=== PATIENT | female | born 1980 | race Caucasian/White ===

== ENCOUNTER 2016-10-16 00:53 | Emergency (ER) | payer MEDICAID, OTHER ==
[~2016-10-16] VITALS: Ht 162.6 cm; Wt 52.0 kg
[~2016-10-16 00:53] MED LIST: DOXY100T20 PO; IBUP-1542 PO; NAPR-260 PO
[2016-10-16 00:56] VITALS: Ht 162.6 cm; Wt 52.0 kg
--- NOTE | 2016-10-16 02:07 | RADRPT ---
PROCEDURE: US Abdomen (right upper quadrant). CLINICAL INDICATION: Pain. TECHNIQUE: Multiple real-time longitudinal and transverse images of the right upper quadrant of th e abdomen were acquired utilizing a curved array transducer. Images were reviewed on a high-resoluti on PACS workstation. COMPARISON: None FINDINGS: The liver is normal in size and echogencity. There is no focal intrahepatic mass.. The gallbladder is normal. There is no pericholecystic fluid or gallbladder wall thickening or gallstones. No intr a or extrahepatic biliary dilatation is seen. The common bile duct measures 2.6 mm in maximal dimen luis armando. The visualized portions of the pancreas are unremarkable with obscuration of the tail of the pancreas. No free fluid is identified. The right kidney measures 9.9 cm in length. There is normal echogenicity within the right kidney. There is no perinephric fluid collection. No hydronephrosis, mass, or calculus is seen. IMPRESSION: 1. Negative examination. RPTAT: [facility] .Juan Pablo Guillen MD, MD Date Time Electronically viewed and signed by .Juan Pablo Guillen MD, on 10/16/2016 02:07 .K/
[2016-10-16 02:35] LABS: BASOPHILS % 0.3 % (0.0-2.0); EOSINOPHILS % 0.3 % (0.0-7.0); HEMATOCRIT 36.2 % (37.0-47.0); HEMOGLOBIN 12.2 g/dl (12.0-16.0); LYMPHOCYTES # 2.1 10^3/ul (0.8-2.9); LYMPHOCYTES % 34.6 % (15.0-51.0); MEAN CORPUSCULAR HEMOGLOBIN 30.1 pg (29.0-33.0); MEAN CORPUSCULAR HGB CONC 33.7 g/dl (32.0-37.0); MEAN CORPUSCULAR VOLUME 89.4 fl (82.0-101.0); MEAN PLATELET VOLUME 8.7 fl (7.4-10.4); MONOCYTE # 0.3 10^3/ul (0.3-0.9); MONOCYTES % 5.2 % (0.0-11.0); NEUTROPHIL # 3.6 10^3/ul (1.6-7.5); NEUTROPHILS % 59.3 % (39.0-77.0); PLATELET COUNT 244 10^3/UL (140-415); RED BLOOD COUNT 4.05 10^6/ul (4.20-5.40); RED CELL DISTRIBUTION WIDTH 12.6 % (11.5-14.5)
[2016-10-16 02:49] LABS: ALBUMIN 4.2 g/dl (3.3-4.9); ALBUMIN/GLOBULIN RATIO 1.5; BILIRUBIN,INDIRECT 0.6 mg/dl (0-1.1); BILIRUBIN,TOTAL 0.6 mg/dl (0.2-1.3); CREATININE 0.91 mg/dl (0.44-1.00); POTASSIUM 4.2 mmol/L (3.5-5.1)
[2016-10-16] MEDS ORDERED: IBUP200C11 PO (03:01)
[2016-10-16] MEDS ORDERED: ACET-141 PO (03:01)
[2016-10-16] MEDS ORDERED: LIDOCAINE/MYLANTA 40 ML BTL PO ONE (03:30)
[2016-10-16 03:58] LABS: ADD UMIC YES; UR AMORPHOUS CRYSTAL MANY /HPF (NONE SEEN); UR ASCORBIC ACID 40 mg/dL (NEGATIVE); UR BACTERIA FEW /HPF (NONE SEEN); UR BILIRUBIN (Dip) NEGATIVE (NEGATIVE); UR BLOOD (Dip) NEGATIVE (NEGATIVE); UR CLARITY CLOUDY (CLEAR); UR COLOR YELLOW (YELLOW); UR GLUCOSE (Dip) NEGATIVE (NEGATIVE); UR KETONES (Dip) NEGATIVE (NEGATIVE); UR LEUKOCYTE ESTERASE (Dip) NEGATIVE Leu/ul (NEGATIVE); UR MUCUS FEW /HPF (NONE SEEN); UR NITRITE (Dip) POSITIVE (NEGATIVE); UR RBC 2 /HPF (0-5); UR SPECIFIC GRAVITY (Dip) 1.019 (1.003-1.030); UR SQUAMOUS EPITHELIAL CELL FEW /HPF (FEW); UR TOTAL PROTEIN (Dip) NEGATIVE (NEGATIVE); UR UROBILINOGEN (Dip) NEGATIVE (NEGATIVE)
[2016-10-16] MEDS ORDERED: CEFTRIAXONE 1 GM/50 ML (PMX) 50 ML IVPB ONE (04:30)
[2016-10-16] MEDS ORDERED: NAPR-688 PO (04:47)
[2016-10-16] MEDS ORDERED: CIPR500S2 PO (04:47)
[2016-10-16] MEDS ORDERED: ONDA4TAB14 PO (04:47)
[2016-10-16] MEDS ORDERED: HYDR-906 PO (04:48)
--- NOTE | 2016-10-16 04:52 | ERD ---
ER Documentation Chief Complaint Date/Time DATE: 10/16/16 TIME: 04:48 Chief Complaint epigastric pain x 3 weeks HPI 28-year-old female presented with epigastric pain 3 weeks. She also states she has some diarrhea today. Pain is described as a sharp pain that does not radiate. She has had no fevers or chills. She denies the possibility she may because she has had her tubes ablated. ROS All systems reviewed and are negative except as per history of present illness. Medications Home Meds Active Scripts Hydrocodone/Acetaminophen ([place] 5-325 Tablet) 1 Each Tablet, 1 EACH PO Q6, #10 TAB Prov:ASHLEY MARY DO 10/16/16 Ciprofloxacin (Ciprofloxacin) 500 Mg/5 Ml Brandy.mc.rec, 500 MG PO BID, #6 TAB Prov:ASHLEY MARY DO 10/16/16 Ondansetron (Ondansetron Odt) 4 Mg Tab.rapdis, 4 MG PO Q6H Y for NAUSEA AND/OR VOMITING, #14 TAB Prov:ASHLEY MARY DO 10/16/16 Naproxen* (Naproxen*) 500 Mg Tablet, 500 MG PO BID Y for PAIN, #14 TAB Prov:ASHLEY MARY DO 10/16/16 Reported Medications Ibuprofen* (Advil*) 200 Mg Capsule, 200 MG PO Q6H Y for PAIN, CAP 10/16/16 Acetaminophen* (Acetaminophen*) 500 MG Extra Strength Tablet, 500 MG PO Q4H Y for PAIN AND OR ELEVATED TEMP, TAB 10/16/16 Discontinued Scripts Doxycycline Hyclate* (Doxycycline Hyclate*) 100 Mg Tablet.dr, 100 MG PO BID for 10 Days, TAB Prov:KATARZYNA AGUAIR NP 06/17/15 Ibuprofen* (Ibuprofen*) 600 Mg Tablet, 600 MG PO Q6H Y for PA, #30 TAB Prov:SHYAM DONALDSON NP 12/19/14 Naproxen* (Naprosyn*) 500 Mg Tablet, 500 MG PO BID Y for PAIN AND/OR INFLAMMATION, #30 TAB Prov:SHYAM DONALDSON NP 10/03/14 Allergies Allergies: Coded Allergies: No Known Allergy (Unverified , 10/16/16) PMhx/Soc History of Surgery: No Anesthesia Reaction: No Hx Neurological Disorder: No Hx Respiratory Disorders: No Hx Cardiac Disorders: No Hx Psychiatric Problems: No Hx Miscellaneous Medical Probl: No Hx Alcohol Use: Yes (SOCIALLY) Hx Substance Use: Yes (MARIJUANA) Hx Tobacco Use: Yes Smoking Status: Never smoker Physical Exam Vitals Vital Signs Date Time Temp Pulse Resp B/P Pulse Ox O2 Delivery O2 Flow Rate FiO2 10/16/16 03:44 85 12 113/90 100 10/16/16 00:56 98.3 103 20 119/72 100 Physical Exam Const: [] Mild distress, appears uncomfortable Head: Atraumatic Eyes: Normal Conjunctiva ENT: Normal External Ears, Nose and Mouth. Neck: Full range of motion..~ No meningismus. Resp: Clear to auscultation bilaterally Cardio: Regular rate and rhythm, no murmurs Abd: Soft, mild epigastric tenderness without guarding or rebound non distended. Normal bowel sounds Skin: No petechiae or rashes Back: No midline or flank tenderness Ext: No cyanosis, or edema Neur: Awake and alert and oriented 3, no focal deficits. Psych: Normal Mood and Affect Result Diagram: 10/16/16 0148 10/16/16 0148 Results 24 hrs Laboratory Tests Test 10/16/16 01:48 10/16/16 03:27 White Blood Count 6.010^3/ul Red Blood Count 4.0510^6/ul Hemoglobin 12.2g/dl Hematocrit 36.2% Mean Corpuscular Volume 89.4fl Mean Corpuscular Hemoglobin 30.1pg Mean Corpuscular Hemoglobin Concent 33.7g/dl Red Cell Distribution Width 12.6% Platelet Count 00671^3/UL Mean Platelet Volume 8.7fl Neutrophils % 59.3% Lymphocytes % 34.6% Monocytes % 5.2% Eosinophils % 0.3% Basophils % 0.3% Nucleated Red Blood Cells % 0.0/100WBC Neutrophils # 3.610^3/ul Lymphocytes # 2.110^3/ul Monocytes # 0.310^3/ul Eosinophils # 0.010^3/ul Basophils # 0.010^3/ul Nucleated Red Blood Cells # 0.010^3/ul Sodium Level 139mmol/L Potassium Level 4.2mmol/L Chloride Level 103mmol/L Carbon Dioxide Level 28mmol/L Anion Gap 12 Blood Urea Nitrogen 16mg/dl Creatinine 0.91mg/dl Glucose Level 96mg/dl Calcium Level 9.0mg/dl Total Bilirubin 0.6mg/dl Direct Bilirubin 0.00mg/dl Indirect Bilirubin 0.6mg/dl Aspartate Amino Transf (AST/SGOT) 16IU/L Alanine Aminotransferase (ALT/SGPT) 28IU/L Alkaline Phosphatase 53IU/L Total Protein 7.0g/dl Albumin 4.2g/dl Globulin 2.80g/dl Albumin/Globulin Ratio 1.50 Lipase 44U/L Urine Color YELLOW Urine Clarity CLOUDY Urine pH 7.0 Urine Specific [place] 1.019 Urine Ketones NEGATIVEmg/dL Urine Nitrite POSITIVEmg/dL Urine Bilirubin NEGATIVEmg/dL Urine Urobilinogen NEGATIVEmg/dL Urine Leukocyte Esterase NEGATIVELeu/ul Urine Microscopic RBC 2/HPF Urine Microscopic WBC 10/HPF Urine Squamous Epithelial Cells FEW/HPF Urine Amorphous Crystals MANY/HPF Urine Bacteria FEW/HPF Urine Mucus FEW/HPF Urine Hemoglobin NEGATIVEmg/dL Urine Glucose NEGATIVEmg/dL Urine Total Protein NEGATIVEmg/dl Current Medications Medications (Trade) Dose Ordered Sig/[place] Route PRN Reason Start Time Stop Time Status Last Admin Dose Admin Miscellaneous Medication 40 ml 40 ml ONCE ONCE PO 10/16/16 03:30 10/16/16 03:31 DC 10/16/16 03:25 Ceftriaxone Sodium (Rocephin) 50 ml @ 100 mls/hr ONCE ONCE IVPB 10/16/16 04:30 10/16/16 04:59 Procedures/MDM UTI and presumed described gastroenteritis in 28-year-old female. Labs are otherwise normal. No signs of serious bacterial infection. Patient's condition was improved and she was given 4 mg of morphine, IV Zofran, normal saline. Also gave her a gram of Rocephin when her urinalysis returned positive. We will discharge her with 3 days of Cipro as well as a few Edison pills, naproxen and Zofran. Primary care follow-up in 2-3 days and return precautions to ER Right upper quadrant ultrasound interpretation: I see no gallstones or free fluid. Normal appearance of liver Departure Diagnosis: Primary Impression: UTI (urinary tract infection) Additional Impressions: Acute abdominal pain Gastroenteritis Condition: Stable Patient Instructions: Understanding Urinary Tract Infections (UTIs), Gastroenteritis, Viral (6Y-Adult) Additional Instructions: Call your primary care doctor TOMORROW for an appointment during the next 2-3 days.See the doctor sooner or return here if your condition worsens before your appointment time. ASHLEY MARY DO Oct 16, 2016 04:52
[2016-10-16 05:42] VITALS: BP 110/90; PULSE 79; RESP 12
== END 2016-10-16 05:44 | disposition home or self-care (01) ==
LOC: E/R 00:53
DX: N39.0 Urinary tract infection, site not specified (principal); K52.9 Noninfective gastroenteritis and colitis, unspecified
CPT/HCPCS: 36415; 76705; 80053; 81001; 83690; 85025; 96374; J0696; Z7502; Z7610

== ENCOUNTER 2018-02-19 16:02 | Emergency (ER) | END 2018-02-19 19:18 | disposition home or self-care (01) ==

== ENCOUNTER 2018-09-22 14:28 | Emergency (ER) | payer OTHER ==
[~2018-09-22] VITALS: Ht 170.2 cm; Wt 50.6 kg
[~2018-09-22 14:28] MED LIST changes: +ACET-141 PO; +ALBU8.5H8 INH; +AZIT250T PO; +CIPR500S2 PO; -DOXY100T20 PO; +GUAI473L22 PO; +HYDR-4011 PO; -IBUP-1542 PO; +IBUP200C11 PO; -NAPR-260 PO; +NAPR-688 PO; +ONDA4TAB14 PO
[2018-09-22 14:47] VITALS: Ht 170.2 cm; Wt 50.6 kg
[2018-09-22] MEDS ORDERED: IBUPROFEN 800 MG TAB PO ONE (15:30)
[2018-09-22] MEDS ORDERED: IBUP-1542 PO (15:57)
[2018-09-22 16:13] VITALS: BP 127/75; PULSE 77; RESP 18
--- NOTE | 2018-09-22 18:16 | ERD ---
ER Documentation Chief Complaint Chief Complaint LEFT ABD PAIN/FLANK PAIN WITH LIGHT BROWN URINE. PROTRUDING BELLY BUTTON HPI Patient is a with no medical problems who presents with a "bump in my stomach". The patient said that she has had this bump in her stomach for "a while". She reports pain in the left flank which started 2 days ago. She had subjective fevers. Today her urine was brown. She noticed a little bit of blood. She has had no treatment as of yet. Upon review of old medical records this is the patient's 10th visit to the ER since 2009. Her primary doctor is Dr. Pham. ROS All systems reviewed and are negative except as per history of present illness. Medications Home Meds Active Scripts Ibuprofen* (Motrin*) 600 Mg Tab, 600 MG PO Q6H PRN for PAIN AND OR ELEVATED TEMP, #30 TAB Prov:CHRISTINE NASSAR MD 09/22/18 Discontinued Reported Medications Ibuprofen* (Advil*) 200 Mg Capsule, 200 MG PO Q6H PRN for PAIN, CAP 10/16/16 Acetaminophen* (Acetaminophen*) 500 MG Extra Strength Tablet, 500 MG PO Q4H PRN for PAIN AND OR ELEVATED TEMP, TAB 10/16/16 Discontinued Scripts Guaifenesin-Codeine Phosphate* (Guaifenesin* AC Cough Syrup) 473 Ml Liquid, 5 ML PO BID PRN for COUGH, #60 ML Prov:KUSUM GIVENS MD 02/19/18 Albuterol Sulfate* (Proair HFA*) 8.5 Gm Hfa.aer.ad, 2 PUFF INH Q4H PRN for WHEEZ ING AND SOB, #1 INHALER Prov:KUSUM GIVENS MD 02/19/18 Azithromycin* (Zithromax*) 250 Mg Tablet, 250 MG PO .ZPACK DIRECTED, #6 TAB TAKE 500 MG (2 TABS) THE FIRST DAY THEN 250 MG (1 TAB) DAYS 2-5 Prov:KUSUM GIVENS MD 02/19/18 Hydrocodone/Acetaminophen ([place] 5-325 Tablet) 1 Each Tablet, 1 EACH PO Q6, #10 TAB Prov:ASHLEY MARY DO 10/16/16 Ciprofloxacin (Ciprofloxacin) 500 Mg/5 Ml Brandy.mc.rec, 500 MG PO BID, #6 TAB Prov:ASHLEY MARY DO 10/16/16 Ondansetron (Ondansetron Odt) 4 Mg Tab.rapdis, 4 MG PO Q6H PRN for NAUSEA AND/OR VOMITING, #14 TAB Prov:ASHLEY MARY DO 10/16/16 Naproxen* (Naproxen*) 500 Mg Tablet, 500 MG PO BID PRN for PAIN, #14 TAB Prov:ASHLEY MARY DO 10/16/16 Allergies Allergies: Coded Allergies: No Known Allergy (Unverified , 09/22/18) PMhx/Soc History of Surgery: Yes ( x 3) Anesthesia Reaction: No Hx Neurological Disorder: No Hx Respiratory Disorders: No Hx Cardiac Disorders: No Hx Psychiatric Problems: No Hx Miscellaneous Medical Probl: No Hx Alcohol Use: Yes (SOCIALLY) Hx Substance Use: Yes (MARIJUANA) Hx Tobacco Use: Yes Smoking Status: Current every day smoker FmHx Family History: diabetes Physical Exam Vitals Vital Signs Date Temp Pulse Resp B/P (MAP) Pulse Ox O2 O2 Flow FiO2 Time Delivery Rate 09/22/18 99.1 77 18 127/75 100 Room Air 16:13 (92) 09/22/18 99.1 92 16 131/78 100 14:47 (95) Physical Exam Const: Moderate distress Head: Atraumatic Eyes: Normal Conjunctiva ENT: Normal External Ears, Nose and Mouth. Neck: Full range of motion. No meningismus. Resp: Clear to auscultation bilaterally Cardio: Regular rate and rhythm, no murmurs Abd: Soft, non tender, non distended. Normal bowel sounds, left-sided flank pain without rash Skin: No petechiae or rashes Back: No midline or flank tenderness Ext: No cyanosis, or edema Neur: Awake and alert Psych: Normal Mood and Affect Results 24 hrs Laboratory Tests Test 09/22/18 15:43 09/22/18 15:57 Bedside Urine pH (LAB) 6.0 Bedside Urine Protein (LAB) Negative Bedside Urine Glucose (UA) Negative Bedside Urine Ketones (LAB) Negative Bedside Urine Blood Negative Bedside Urine Nitrite (LAB) Negative Bedside Urine Leukocyte Esterase (L Negative POC Beta HCG, Qualitative NEGATIVE Current Medications Medications Dose Sig/[place] Start Time Status Last (Trade) Ordered Route PRN Stop Time Admin Dose Reason Admin Ibuprofen 800 mg ONCE ONCE 09/22/18 DC 09/22/18 (Motrin) PO 15:30 15:31 09/22/18 15:31 Procedures/MDM Urine dip is negative for infection. Urine points test is negative. Smoking Cessation Therapy: Pt. was lectured for greater than 3 minutes on the health risks of continued smoking and the benefits of cessation. Hernia reduction: I was able to use gentle pressure and was easily able to reduce a midline hernia superior to the bellybutton. Patient tolerated the entire procedure. Patient is a 38-year-old female who presents with hernia. The hernia was easily reducible and there is no sign of obstruction. She also had pain in the left flank. Urine dip is negative for hematuria or infection. At this point I doubt pyelonephritis or kidney stone. I believe outpatient management is appropriate but the patient will need close follow-up with her primary doctor. She can follow-up and can return if symptoms worsen. She will be given a prescription for ibuprofen for pain. Departure Diagnosis: Primary Impression: Flank pain Additional Impression: Hernia Condition: Fair Patient Instructions: Flank Pain, Uncertain Cause, Hernia (Inguinal, Ventral, Umbilical) Referrals: DEBRA PHAM MD (PCP) Additional Instructions: Call your primary care doctor TOMORROW for an appointment during the next 1-2 days.See the doctor sooner or return here if your condition worsens before your appointment time. CHRISTINE NASSAR MD Sep 22, 2018 18:16
== END 2018-09-22 16:15 | disposition home or self-care (01) ==
LOC: E/R 14:28
DX: K40.90 Unilateral inguinal hernia, without obstruction or gangrene, not specified as recurrent (principal); F17.210 Nicotine dependence, cigarettes, uncomplicated
CPT/HCPCS: 81003; 81025; Z7502; Z7610; 99282